=== PATIENT | male | born 1980 | race Caucasian/White ===

== ENCOUNTER 2023-04-20 09:25 | Emergency (ER) | payer BC, SELFPAY ==
[2023-04-20 09:32] VITALS: BP 136/91; PULSE 52; RESP 17; TEMP 36.6; O2SAT 97; BMI 29.2
--- NOTE | 2023-04-20 09:36 | XR_ITS ---
The [address] [address] Patient Name: GUERO COUCH MRN: [id number] date: 1980 Sex: M Assigned Patient Location: ER Current Patient Location: ED.MAIN Accession/Order Number: [id number] Exam Date: 04/20/2023 09:54 Report Date: 04/20/2023 10:17 At the request of: WALTER TOVAR Procedure: XR foot RT min 3V PROCEDURE: XR foot RT min 3V HISTORY: horse stepped on foot four days ago ; lateral right foot pain COMPARISON: None. FINDINGS: BONES:Tiny corticated ossification along the dorsal surface of the anterior talus consistent with sequela of remote injury. No acute fracture, dislocation, bone lesion. Tiny calcaneal plantar spur. SOFT TISSUES:Mild distal dorsal soft tissue swelling. EFFUSION:None visible. OTHER: Negative. XR/XR foot RT min 3V IMPRESSION: 1. No acute bone abnormality. Electronically authenticated by: DANIS TONEY Date: 04/20/2023 10:17
--- NOTE | 2023-04-20 09:45 | ED.LOWEXI1 ---
HPI - Extremity Injury (Lower) General Chief Complaint: Extremity Injury, Lower Stated Complaint: R FOOT INJURY Time Seen by Provider: 04/20/23 09:28 Source: patient Mode of arrival: walk-in Limitations: no limitations History of Present Illness HPI Narrative: 43-year-old male presents for right foot pain. A few coarse stepped on his foot four days ago. He's been walking on it since and went to work. He continued to have swelling and bruising so he came in to get checked. His ankle doesn't hurt. The pain is moderate. He states his last tetanus shot was more than ten years ago. Related Data Home Medications Medication Instructions Recorded Confirmed pantoprazole 40 mg tablet,delayed 40 mg PO DAILY 04/20/23 04/20/23 release Allergies Allergy/AdvReac Type Severity Reaction Status Date / Time No Known Drug Allergies Allergy Verified 04/20/23 09:30 Review of Systems ROS Narrative A ten point review of systems is negative except as noted above. PFSH PFSH Social History Smoking status: Never smoker Exam Narrative Exam Narrative: Nurses note and vital signs reviewed and patient is not hypoxic. General: The patient appears well and in no apparent distress. Patient is resting comfortably on cart. Skin: Warm, dry, no pallor noted. There is no rash noted. Head: Normocephalic, atraumatic Eye: Normal conjunctiva, no drainage Ears, Nose, Mouth, and Throat: oral mucosa is moist. Nares patent. Cardiovascular: Regular Rate and Rhythm Respiratory: Patient is in no distress, no accessory muscle use, lungs are clear to auscultation, no wheezing, rales or rhonchi Back: non-tender GI: nonttender Musculoskeletal: right ankle is nontender and nonswollen. He has bruising and tenderness across the dorsum of his right foot. He has an abrasion on the dorsum of his foot adjacent to the base of the 4th and 5th toes. There is bruising in his toes and on the dorsum of his foot. Neurological: A&O, normal speech Psychiatric: Cooperative Constitutional Vital Signs, click to edit/add: Last Vital Signs Temp 97.8 F 04/20/23 09:32 Pulse 52 L 04/20/23 09:32 Resp 17 04/20/23 09:32 BP 136/91 04/20/23 09:32 Pulse Ox 97 04/20/23 09:32 Course Vital Signs Vital signs: Vital Signs Temperature 97.8 F 04/20/23 09:32 Pulse Rate 52 L 04/20/23 09:32 Respiratory Rate 17 04/20/23 09:32 Blood Pressure 136/91 04/20/23 09:32 Pulse Oximetry 97 04/20/23 09:32 Temperature 97.8 F 04/20/23 09:32 Pulse Rate 52 L 04/20/23 09:32 Respiratory Rate 17 04/20/23 09:32 Blood Pressure 136/91 04/20/23 09:32 Pulse Oximetry 97 04/20/23 09:32 MDM - Extremity Injury (Lower) MDM Narrative Medical decision making narrative: X-ray per radiology shows no acute findings, no fractures. He was recommended ice, rest, and elevation as well as Motrin. Treatment diagnosis and follow-up were discussed with the patient. Differential Diagnosis Differential diagnosis: Likely other (foot contusion, foot fracture) Imaging Data right foot x-ray: Radiologist's impression: PROCEDURE: XR foot RT min 3V HISTORY: horse stepped on foot four days ago ; lateral right foot pain COMPARISON: None. FINDINGS: BONES:Tiny corticated ossification along the dorsal surface of the anterior talus consistent with sequela of remote injury. No acute fracture, dislocation, bone lesion. Tiny calcaneal plantar spur. SOFT TISSUES:Mild distal dorsal soft tissue swelling. EFFUSION:None visible. OTHER: Negative. IMPRESSION: 1. No acute bone abnormality. Electronically authenticated by: DANIS TONEY Date: 04/20/2023 10: Discharge Plan Discharge Chief Complaint: Extremity Injury, Lower Clinical Impression: Contusion of foot, right Patient Disposition: Home, Self-Care Time of Disposition Decision: 10:22 Condition: Good Mode of Transportation: Private Vehicle Prescriptions / Home Meds: No Action pantoprazole 40 mg tablet,delayed release (DR/EC) 40 mg PO DAILY Instructions: Foot Contusion (ED) Stand Alone Forms: Portal Instructions Referrals: LEO MOORE [Physician] - 1 week
[2023-04-20] MEDS: ADACEL DIPH,PERTUSS(ACELL),TET VAC/PF 0.5 ML ADULT SYRINGE IM (10:09)
== END 2023-04-20 10:38 | disposition home or self-care (01) ==
PROVIDERS: Emergency Provider Emergency Medicine
DX: S90.31XA Contusion of right foot, initial encounter (principal); W55.12XA Struck by horse, initial encounter; Z23 Encounter for immunization; Z79.899 Other long term (current) drug therapy
CPT/HCPCS: 73630; 90471; 90715; 99284